=== PATIENT | female | born 1940 | race Caucasian/White ===

== ENCOUNTER 2019-04-16 21:43 | Emergency (ER) | payer OTHER ==
[2019-04-16] MEDS ORDERED: fentaNYL 100 MCG/2 ML INJ IVP ONE (21:44)
[2019-04-16] MEDS ORDERED: fentaNYL 100 MCG/2 ML INJ ONE (21:45)
[2019-04-16] MEDS ORDERED: ONDANSETRON 4 MG/2 ML VIAL IVP ONE (21:48)
[2019-04-16] MEDS ORDERED: ONDANSETRON 4 MG/2 ML VIAL ONE (21:49)
[2019-04-16] MEDS ORDERED: IOPAMIDOL (ISOVUE-300) 100 ML BTL ONE (21:58)
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
[2019-04-16 22:13] LABS: PLATELET COUNT 305 10^3/uL (150-400)
[2019-04-16 22:22] LABS: INR 1.02 (0.83-1.16)
[2019-04-16 23:05] VITALS: BP 169/77
[2019-04-16] MEDS ORDERED: CYCLOBENZAPRINE 10MG PREPACK#3 BTL TAKEHOME ONE (23:14)
== END 2019-04-16 23:21 | disposition home or self-care (01) ==
LOC: EDUNIT#
DX: S16.1XXA Strain of muscle, fascia and tendon at neck level, initial encounter (principal); S20.219A Contusion of unspecified front wall of thorax, initial encounter; V49.49XA Driver injured in collision with other motor vehicles in traffic accident, initial encounter; Y92.410 Unspecified street and highway as the place of occurrence of the external cause
CPT/HCPCS: 70450; 71260; 72125; 74177; 96374; 96375; 99285; J2405; J3010; Q9967; 82435-PO; 82565-PO; 82947-PO; 84132-PO; 84295-PO; 84520-PO; 85014-ER

== ENCOUNTER 2019-04-27 14:49 | Observation (INO) | payer OTHER ==
[2019-04-27] MEDS ORDERED: fentaNYL 100 MCG/2 ML INJ IVP ONE ×5 (14:58→18:02)
[2019-04-27] MEDS ORDERED: ONDANSETRON 4 MG/2 ML VIAL IVP ONE ×2 (14:58→18:38)
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
[2019-04-27] MEDS ORDERED: LORazepam 2 MG/ML INJ IVP ONE (15:27)
[2019-04-27] MEDS ORDERED: KETOROLAC 15 MG/1 ML SDV IVP ONE (16:42)
[2019-04-27] MEDS ORDERED: LIDOCAINE 4%/MENTHOL 1% PATCH TD ONE (16:42)
[2019-04-27] MEDS ORDERED: ACETAMINOPHEN 325 MG TAB PO ONE (16:42)
[2019-04-27 18:30] LABS: PLATELET COUNT 360 10^3/uL (150-400)
[2019-04-27] MEDS ORDERED: ONDANSETRON 4 MG/2 ML VIAL IVP PRN (18:31)
[2019-04-27] MEDS ORDERED: HYDROmorphONE/DILAUDID 1 MG/ML INJ IVP PRN (18:31)
[2019-04-27] MEDS ORDERED: ACETAMINOPHEN 325 MG TAB PO PRN (18:31)
[2019-04-27] MEDS ORDERED: ONDANSETRON 4 MG/2 ML VIAL ONE (18:39)
[2019-04-27] MEDS ORDERED: D5W 1/2 NS W/ 20 KCl/L 1,000 ML IV SCH (18:45)
[2019-04-27] MEDS ORDERED: PROPRANOLOL HCL 10 MG TAB PO PRN (18:51)
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
--- NOTE | 2019-04-27 19:33 | CPEKG ---
Test Reason : OPEN Blood Pressure : / mmHG Vent. Rate : 073 BPM Atrial Rate : 074 BPM P-R Int : 160 ms QRS Dur : 092 ms QT Int : 407 ms P-R-T Axes : 064 055 073 degrees QTc Int : 449 ms Sinus rhythm Nonspecific repolarization abnormalities Confirmed by Amy Mcintosh ([id number]) on 04/27/2019 7:32:50 PM Referred By: AMY MCINTOSH Confirmed By:Amy Mcintosh
[2019-04-27] MEDS: HYDROCODONE/APAP 5/325 TAB PO PRN ×2 (20:01→21:32)
[2019-04-27] MEDS: DOCUSATE SODIUM 100 MG CAP PO SCH (20:14)
[2019-04-27] MEDS ORDERED: SENNOSIDES 1 TAB PO SCH (21:00)
[2019-04-27] MEDS ORDERED: PATCH REMOVAL 1 EA PATCH TD SCH (21:00)
[2019-04-27] MEDS ORDERED: AMITRIPTYLINE HCL 25 MG TAB PO SCH (21:00)
[2019-04-27] MEDS: IBUPROFEN 600 MG TAB PO SCH (21:31)
[2019-04-28] MEDS: HYDROCODONE/APAP 5/325 TAB PO PRN ×2 (02:40→12:03)
[2019-04-28] MEDS: IBUPROFEN 600 MG TAB PO SCH ×2 (04:48→14:08)
[2019-04-28 05:28] LABS: PLATELET COUNT 304 10^3/uL (150-400)
[2019-04-28] MEDS ORDERED: NS 1,000 ML IV SCH (08:15)
[2019-04-28] MEDS: DOCUSATE SODIUM 100 MG CAP PO SCH (08:59)
[2019-04-28] MEDS ORDERED: CALCIUM CARBONATE 500 MG TAB PO SCH (09:00)
[2019-04-28] MEDS ORDERED: NS 500 ML IV ONE (14:43)
--- NOTE | 2019-04-28 14:49 | PDGENHP ---
History and Physical - Chief Complaint hyponatremia - History of Present Illness 78 yo female admitted by the trauma service following a mechanical fall where she hurt her right shoulder. She is a [facility] patient. She is noted to have hyponatremia and we are asked to consult regarding mgmt of this. She reports a several years hx of having low Na following a pneumonia bout several years ago. At that time her Na was around 125 and slowly it increased but never went back to normal. She says that her sodium level is usually in the low 130's and sometimes in the high 120's. She thinks it has been worked up by [facility] but she cannot recall. She is not symptomatic. There is no confusion. There is no hx of seizures. 1/2 Normal Saline was administered yesterday and today her Na has decreased. Urine studies were ordered and she reports having a difficult time to urinate, low urine. She denies focal weakness, confusion, fever, n/v/d. She still has right shoulder pain PMHx: HTN SocHx: denies T/E/I FmHx: non contributory History Information - Allergies/Home Medication List Allergies/Adverse Reactions: cortisone Allergy (Verified 04/27/19 19:00) opiates Allergy (Uncoded 04/27/19 19:01) Home Medications: Amitriptyline HCl [Elavil] 25 mg PO HS 04/27/19 [Last Taken 04/26/19] Calcium Carbonate [Oyster Shell Calcium 500 mg (*)] 500 mg PO DAILY 04/27/19 [ Last Taken 04/27/19] Docusate Sodium [Colace 100 MG (*)] 100 mg PO BID 04/27/19 [Last Taken 04/27/19 08:00] Herbals/Supplements -Info Only 1 ea PO DAILY 04/27/19 [Last Taken 04/27/19] Propranolol HCl [Inderal 10mg (*)] 10 mg PO DAILY PRN 04/27/19 [Last Taken Unknown] Sennosides [Senna Lax] 8.6 mg PO HS 04/27/19 [Last Taken 04/26/19] I have personally reviewed and updated: medical history, social history - Social History Smoking Status: Never smoked Review of Systems Review of Systems: ROS: 10pt was reviewed & negative except for what was stated in HPI & below Physical Exam Physical Exam: Temp Pulse Resp BP Pulse Ox 36.7 C 67 18 146/67 H 100 04/28/19 11:19 04/28/19 11:19 04/28/19 11:19 04/28/19 11:19 04/28/19 11:19 O2 (L/minute) 2 Constitutional: no apparent distress Eyes: PERRL, EOMI Ears, Nose, Mouth, Throat: moist mucous membranes, hearing normal Cardiovascular: regular rate and rhythym, No edema Respiratory: no respiratory distress, no rales or rhonchi, clear to auscultation Gastrointestinal: normoactive bowel sounds Skin: warm Neurologic: AAOx3 Psychiatric: interacting appropriately, not anxious, not encephalopathic Lymph, Heme, Immunologic: No petechiae Lab Data & Imaging Review 04/28/19 04:42 04/28/19 04:42 WBC 10.50 10^3/uL (3.80-9.50) H 04/28/19 04:42 RBC 3.95 10^6/uL (4.18-5.33) L 04/28/19 04:42 Hgb 11.6 g/dL (12.6-16.3) L 04/28/19 04:42 POC Hgb 12.9 gm/dL (12.6-16.3) 04/27/19 15:36 Hct 33.8 % (38.0-47.0) L 04/28/19 04:42 POC Hct 38 % (38-47) 04/27/19 15:36 MCV 85.6 fL (81.5-99.8) 04/28/19 04:42 MCH 29.4 pg (27.9-34.1) 04/28/19 04:42 MCHC 34.3 g/dL (32.4-36.7) 04/28/19 04:42 RDW 12.3 % (11.5-15.2) 04/28/19 04:42 Plt Count 304 10^3/uL (150-400) 04/28/19 04:42 MPV 9.0 fL (8.7-11.7) 04/28/19 04:42 Neut % (Auto) 76.7 % (39.3-74.2) H 04/28/19 04:42 Lymph % (Auto) 13.2 % (15.0-45.0) L 04/28/19 04:42 Taney % (Auto) 8.2 % (4.5-13.0) 04/28/19 04:42 Eos % (Auto) 1.3 % (0.6-7.6) 04/28/19 04:42 Baso % (Auto) 0.1 % (0.3-1.7) L 04/28/19 04:42 Nucleat RBC Rel Count 0.0 % (0.0-0.2) 04/28/19 04:42 Absolute Neuts (auto) 8.05 10^3/uL (1.70-6.50) H 04/28/19 04:42 Absolute Lymphs (auto) 1.39 10^3/uL (1.00-3.00) 04/28/19 04:42 Absolute Monos (auto) 0.86 10^3/uL (0.30-0.80) H 04/28/19 04:42 Absolute Eos (auto) 0.14 10^3/uL (0.03-0.40) 04/28/19 04:42 Absolute Basos (auto) 0.01 10^3/uL (0.02-0.10) L 04/28/19 04:42 Absolute Nucleated RBC 0.00 10^3/uL (0-0.01) 04/28/19 04:42 Immature Gran % 0.5 % (0.0-1.1) 04/28/19 04:42 Immature Gran # 0.05 10^3/uL (0.00-0.10) 04/28/19 04:42 POC Sodium 133 mEq/L (135-145) L 04/27/19 15:36 Sodium 125 mEq/L (135-145) L 04/28/19 04:42 POC Potassium 4.2 mEq/L (3.3-5.0) 04/27/19 15:36 Potassium 4.4 mEq/L (3.5-5.2) 04/28/19 04:42 POC Chloride 100 mEq/L (97-110) 04/27/19 15:36 Chloride 93 mEq/L (97-110) L 04/28/19 04:42 Carbon Dioxide 20 mEq/l (22-31) L 04/28/19 04:42 POC Total CO2 20 mEq/L (22-31) L 04/27/19 15:36 Anion Gap 12 mEq/L (6-14) 04/28/19 04:42 POC BUN 22 mg/dL (7-23) 04/27/19 15:36 BUN 19 mg/dL (7-23) 04/28/19 04:42 Creatinine 0.7 mg/dL (0.6-1.0) 04/28/19 04:42 POC Creatinine 1.2 mg/dL (0.6-1.0) H 04/27/19 15:36 Estimated GFR > 60 04/28/19 04:42 Glucose 119 mg/dL (70-100) H 04/28/19 04:42 POC Glucose 103 mg/dL (70-100) H 04/27/19 15:36 Calcium 8.6 mg/dL (8.5-10.4) 04/28/19 04:42 Assessment & Plan Assessment: #Hyponatremia appears Euvolemic to slight volume deficit -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 If not improved, would await urine studies and monitor overnight #HTN: home meds #s/p fall #right shoulder pain Thank you for this consult, we will follow along
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
[2019-04-28] MEDS ORDERED: NS W/ 20 KCl/L 1,000 ML IV SCH (16:30)
[2019-04-28 17:23] VITALS: BP 174/82
--- NOTE | 2019-04-28 17:29 | PDIAF ---
- Diagnosis Code Status: Full Code - Medication Management Discharge Medications: electronically signed and located in the Home Medication List. - Orders Services needed: Physical Therapy Diet Recommendation: no restrictions on diet Diet Texture: Regular Texture Diet Wound Care Instructions: ice to right shoulder and neck prn. use RUE sling for comfort. gentle ROM RUE. no lifting or resistance training RUE until after outpatient Ortho evaluation Activity/Weight Bearing Restrictions: ambulatory Additional Instructions: Use RUE sling for comfort No lifting overhead x 2 weeks may shower with assistance FU with [facility] PCP this coming week for outpatient Ortho referral - Follow Up Care Current Providers and Referrals: Patient,NotPresent [Unknown] - As per Instructions
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
== END 2019-04-28 19:18 | disposition home health service (06) ==
LOC: EDUNIT# → F3N 18:49
PROVIDERS: ADMIT Surgery; ATTEND Surgery
DX: S06.0X1A Concussion with loss of consciousness of 30 minutes or less, initial encounter (principal); S49.91XA Unspecified injury of right shoulder and upper arm, initial encounter; W10.9XXA Fall (on) (from) unspecified stairs and steps, initial encounter; Y92.009 Unspecified place in unspecified non-institutional (private) residence as the place of occurrence of the external cause; I10 Essential (primary) hypertension; Z96.653 Presence of artificial knee joint, bilateral; E87.1 Hypo-osmolality and hyponatremia
CPT/HCPCS: 70450; 71045; 72125; 73000; 73030; 73060; 73200; 92523; 93005; 96374; 96376; 97161; 97167; 97535; 99285; A4565; G0378; J1885; J2060; J2405; J3010; L0120; L0172; 82435-PO; 82565-PO; 82947-PO; 84132-PO; 84295-PO; 84520-PO; 85014-ER; G0390